=== PATIENT | female | born 1990 | race American Indian/Alaskan Native ===

== ENCOUNTER 2021-12-09 11:04 | Emergency (ER) | payer OTHER ==
[2021-12-09 11:21] VITALS: BP 174/95
--- NOTE | 2021-12-09 12:32 | Emergency Department Report ---
ED ENT HPI - General Chief complaint: Dental/Oral Stated complaint: TOOTHACHE/HEADACHE Time Seen by Provider: 12/09/21 12:14 Source: patient Mode of arrival: Ambulatory Limitations: No Limitations - History of Present Illness Initial comments: 31-year-old female past medical history hypertension reports to the ER with complaints of right lower molar tooth infection. Patient reports cracking her second molar tooth about a week ago. Patient reports the last 2 to 3 days she is having increasing right side dental pain on the lower jaw. Patient denies concerns with swallowing or eating. Patient denies fever and chills. Patient does report slight headache due to pain. Patient reports taking [id number] medication for pain relief but with no improvement. Patient reports no other acute symptoms at this time. - Related Data Previous Rx's Medication Instructions Recorded Last Taken Type Ondansetron [Zofran Odt] 4 mg PO Q6H #10 tab.rapdis 03/16/14 Unknown Rx Doxylamine Succinate/Vit B6 1 each PO QHS PRN #30 tablet. 04/16/18 Unknown Rx [[place] 10-10 mg Tablet] Vit Calc,Iron,Folic 1 each PO QDAY #30 tablet 04/16/18 Unknown Rx [ Vitamins] Acetaminophen/Codeine [Tylenol 1 tab PO Q6H PRN 2 Days #8 tab 12/09/21 Unknown Rx /Codeine # 3 tab] Amoxicillin/K Clav Tab [Augmentin 1 tab PO Q12HR 7 Days #14 tab 12/09/21 Unknown Rx 875 mg] Ibuprofen [Motrin] 800 mg PO Q8HR PRN 7 Days #21 12/09/21 Unknown Rx tablet Allergies Allergy/AdvReac Type Severity Reaction Status Date / Time No Known Allergies Allergy Unverified 03/16/14 12:39 ED Dental HPI - General Chief complaint: Dental/Oral Stated complaint: TOOTHACHE/HEADACHE Time Seen by Provider: 12/09/21 12:14 Source: patient Mode of arrival: Ambulatory Limitations: No Limitations - Related Data Previous Rx's Medication Instructions Recorded Last Taken Type Ondansetron [Zofran Odt] 4 mg PO Q6H #10 tab.rapdis 03/16/14 Unknown Rx Doxylamine Succinate/Vit B6 1 each PO QHS PRN #30 tablet. 04/16/18 Unknown Rx [[place] 10-10 mg Tablet] Vit Calc,Iron,Folic 1 each PO QDAY #30 tablet 04/16/18 Unknown Rx [ Vitamins] Acetaminophen/Codeine [Tylenol 1 tab PO Q6H PRN 2 Days #8 tab 12/09/21 Unknown Rx /Codeine # 3 tab] Amoxicillin/K Clav Tab [Augmentin 1 tab PO Q12HR 7 Days #14 tab 12/09/21 Unknown Rx 875 mg] Ibuprofen [Motrin] 800 mg PO Q8HR PRN 7 Days #21 12/09/21 Unknown Rx tablet Allergies Allergy/AdvReac Type Severity Reaction Status Date / Time No Known Allergies Allergy Unverified 03/16/14 12:39 ED Review of Systems ROS: Stated complaint: TOOTHACHE/HEADACHE Other details as noted in HPI Comment: All other systems reviewed and negative ENT: dental pain ED Past Medical Hx - Past Medical History Previous Medical History?: Yes Hx Hypertension: Yes - Surgical History Past Surgical History?: No - Social History Smoking Status: Never Smoker - Medications Home Medications: Home Medications Medication Instructions Recorded Confirmed Last Taken Type Ondansetron [Zofran Odt] 4 mg PO Q6H #10 tab.rapdis 03/16/14 Unknown Rx Doxylamine Succinate/Vit B6 1 each PO QHS PRN #30 tablet. 04/16/18 Unknown Rx [[place] 10-10 mg Tablet] Vit Calc,Iron,Folic 1 each PO QDAY #30 tablet 04/16/18 Unknown Rx [ Vitamins] Acetaminophen/Codeine [Tylenol 1 tab PO Q6H PRN 2 Days #8 tab 12/09/21 Unknown Rx /Codeine # 3 tab] Amoxicillin/K Clav Tab [Augmentin 1 tab PO Q12HR 7 Days #14 tab 12/09/21 Unknown Rx 875 mg] Ibuprofen [Motrin] 800 mg PO Q8HR PRN 7 Days #21 12/09/21 Unknown Rx tablet ED Physical Exam - General Limitations: No Limitations General appearance: alert, in no apparent distress - Head Head exam: Present: atraumatic, normocephalic - Eye Eye exam: Present: normal appearance - ENT ENT exam: Present: mucous membranes moist - Expanded ENT Exam Expanded Teeth exam: Present: fractured tooth # (#31 cracked ), dental tenderness # (#32 #31 with gum swelling around teeth with swelling . no abscess noted. ) - Neck Neck exam: Present: normal inspection - Respiratory Respiratory exam: Present: normal lung sounds bilaterally. Absent: respiratory distress - Cardiovascular Cardiovascular Exam: Present: regular rate, normal rhythm. Absent: systolic murmur, diastolic murmur, rubs, gallop - GI/Abdominal GI/Abdominal exam: Present: soft, normal bowel sounds - Extremities Exam Extremities exam: Present: normal inspection - Back Exam Back exam: Present: normal inspection - Neurological Exam Neurological exam: Present: alert, oriented X3 - Psychiatric Psychiatric exam: Present: normal affect, normal mood - Skin Skin exam: Present: warm, dry, intact, normal color. Absent: rash ED Course Vital Signs 12/09/21 11:20 Temperature 98.9 F Pulse Rate 80 Respiratory 18 Rate Blood Pressure 174/95 [Right] O2 Sat by Pulse 100 Oximetry ED Medical Decision Making - Medical Decision Making 31-year-old female past medical history hypertension reports to the ER with complaints of right lower molar tooth infection. Patient reports cracking her second molar tooth about a week ago. Patient reports the last 2 to 3 days she is having increasing right side dental pain on the lower jaw. Patient denies concerns with swallowing or eating. Patient denies fever and chills. Patient does report slight headache due to pain. Patient reports taking [id number] medication for pain relief but with no improvement. Patient reports no other acute symptoms at this time. dental exam - teeth #32 with tenderness and #31 ( cracked) with tenderness - gum swelling around both. No trismus noted and no CLIENT ADVOCATE noted. Will start patient on oral abx and pain medication. Patient agrees with plan of care and verbalized understanding. Patient states that she will follow her dentist as well as her primary care provider. Patient is stable for discharge home. Vital Signs 12/09/21 11:20 Temperature 98.9 F Pulse Rate 80 Respiratory 18 Rate Blood Pressure 174/95 [Right] O2 Sat by Pulse 100 Oximetry Patient is asymptomatic with her elevated blood pressure. Patient states she has not taken her morning dose of her BP medication and will take when she gets home. She is currently on labetalol 200 mg every 12 hours. Critical care attestation.: If time is entered above; I have spent that time in minutes in the direct care of this critically ill patient, excluding procedure time. ED Disposition Clinical Impression: Dental infection Disposition: HOME / SELF CARE / HOMELESS Is pt being admited?: No Condition: Stable Instructions: Preventive Dental Care, Adult Prescriptions: Amoxicillin/K Clav Tab [Augmentin 875 mg] 1 tab PO Q12HR 7 Days #14 tab Ibuprofen [Motrin] 800 mg PO Q8HR PRN 7 Days #21 tablet PRN Reason: Pain , Severe (7-10) Acetaminophen/Codeine [Tylenol /Codeine # 3 tab] 1 tab PO Q6H PRN 2 Days #8 tab PRN Reason: Pain , Severe (7-10) Time of Disposition: 12:33
== END 2021-12-09 12:45 | disposition home or self-care (01) ==
LOC: ED 11:04
DX: K04.7 Periapical abscess without sinus (principal); I10 Essential (primary) hypertension
CPT/HCPCS: 99282